=== PATIENT | male | born 1965 | race Caucasian/White ===

== ENCOUNTER 2018-10-16 19:57 | Observation (INO) ==
[2018-10-16] MEDS ORDERED: SODIUM CHLORIDE 0.9% 1000ML 1,000 ML IV SCH (20:30)
[2018-10-16] MEDS ORDERED: IOVERSOL 100ml IV PRN (20:55)
[2018-10-16 20:57] LABS: iSTAT Ionized Calcium 1.1 mmol/l (1.12-1.32); iSTAT Potassium 3.9 mEq/L (3.3-5.0)
--- NOTE | 2018-10-16 21:09 | CT Scan Report ---
CT abd pelvis IV con only CLINICAL HISTORY: 53 years-old Male presenting with RLQ Pain. TECHNIQUE: Multidetector CT of the abdomen and pelvis was performed after the administration of intra venous contrast. IV contrast: None. One or more dose lowering techniques were used consistent with e principles of ALARA (as low as reasonably achievable), including automatic exposure control, mA or kV adjustment to individual patient size, and/or use of iterative reconstruction. COMPARISON: None. CT DOSE (mGy.cm): The estimated cumulative dose is 802.68 mGy.cm. 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 Lung bases: Normal heart size. Calcified mediastinal lymph nodes. No pericardial or pleural effusion. Calcified granuloma noted. Minimal dependent opacities likely atelectasis. Liver: Normal morphology. Density suggestive of hepatic steatosis. No focal lesion. Patent hepatic va sculature. Biliary: No intrahepatic or extrahepatic biliary ductal dilatation. Normal gallbladder. Pancreas: Normal. Spleen: Normal. Adrenal glands: Normal. Kidneys and ureters: Normal. No hydronephrosis. Bladder: Circumferential bladder wall thickening. Pelvic organs: Prostate and seminal vesicles normal. Bowel: The appendix is dilated with an appendicolith at the appendiceal base. Trace periappendiceal f at infiltration and adjacent peritoneal thickening. The appendix measures up to 10 mm in diameter. Peritoneal cavity: No free fluid or intraperitoneal gas. Lymph nodes: No enlarged lymph nodes in the abdomen or pelvis. Vasculature: Aorta and IVC patent and normal in caliber. Abdominal wall: Normal. Musculoskeletal: Degenerative changes of the spine. IMPRESSION: 1. Acute uncomplicated appendicitis. No perforation or abscess. Surgical consultation is warranted. 2. Apparent circumferential bladder wall thickening could indicate cystitis, which may be secondary, or chronic bladder outlet obstruction in the setting of developing benign prostatic hyperplasia. The report will be called/faxed according to standard departmental protocol. Electronically signed by: Manny Banks M.D. 10/16/2018 9:08 PM
[2018-10-16 21:15] LABS: Albumin Level 4.3 gm/dl (3.4-5.0); BUN Creatinine Ratio 12.1 (10-20); Calcium 8.9 mg/dl (8.5-10.1); Creatinine Clr Calc Pharmacy 93.4 ml/min; Est GFR (African American) 90.3; Est GFR (Non-African American) 77.9; Potassium 3.8 mmol/L (3.5-5.1)
[2018-10-16] MEDS ORDERED: MoRPHine SULFATE 4 MG/ML 1 ML CARP\\VIAL IV STA (21:17)
[2018-10-16] MEDS ORDERED: ONDANSETRON INJ 2 MG/ML 2 ML VIAL IV STA (21:17)
[2018-10-16 21:18] LABS: Albumin Globulin Ratio 1.2 (0.9-2); Basophils # (auto) 0.04 K/uL (0-0.2); Basophils % (auto) 0.2 %; Bilirubin,Total 1.6 mg/dl (0.2-1); Eosinophils # (auto) 0.17 K/uL (0-0.5); Globulin 3.7 gm/dl (2.5-4.0); Hematocrit (blood only) 49.3 % (42-52); Hemoglobin 17.6 g/dL (14.0-18.0); Immature Granulocytes # (auto) 0.05 K/uL (0.00-0.02); Immature Granulocytes % (auto) 0.3 %; Lymphocytes # (auto) 1.85 K/uL (1.2-3.4); Lymphocytes % (auto) 10.5 %; Mean Corpuscular Hgb Conc 35.7 g/dL (32-36); Mean Corpuscular Volume 88.5 fL (80-100); Mean Platelet Volume 10.4 fL (7.4-10.4); Monocytes # (auto) 1.11 K/uL (0.11-0.59); Monocytes % (auto) 6.3 %; Neutrophils % (auto) 81.7 %; Platelet Count 202 K/uL (130-400); RDW Standard Deviation 38.2 fL (36.4-46.3); Red Blood Count 5.57 M/uL (4.7-6.1); White Blood Count 17.62 K/uL (4.8-10.8)
[2018-10-16] MEDS ORDERED: LIDOCAINE HCL 1% 20 ML VIAL ONE (21:27)
[2018-10-16] MEDS ORDERED: BACITRACIN OINT 15 GM TUBE ONE (21:27)
[2018-10-16] MEDS ORDERED: BUPIVACAINE 0.5 % 5 MG/1 ML MPF 30ML VIAL ONE (21:27)
--- NOTE | 2018-10-16 21:28 | Surgery Consultation ---
Date of Consultation October 16, 2018 Assessment & Plan (1) Acute appendicitis: pt is a 53 year -old male who presents to Er with RLQ pain, IMP; acute appendicitis Plan, I recommend to do laparoscopic appendectomy, possible open, D/W benefits, risks and alternatives of the surgery, the risks - infection, bleeding, abscess, injury bowel, pt understood, he agrees with [facility], I answered all questions, History of Present Illness History of Present Illness pt is a 53 year-old male who presents to ER with one day history of RLQ pain with nausea and no vomiting, the pain is located at RLQ, pt denies fever, no diarrhea, no back pain, no dysuria. pt had CT scan at ER dx acute appendicitis. Allergies Allergy/AdvReac Type Severity Reaction Status Date / Time [id number] Allergy Mild NONE Uncoded 07/20/09 17:24 Home Medications Home Medications Medication Instructions Recorded Confirmed Type No Known Home Medications 10/16/18 10/16/18 History Patient History Medical History Acute appendicitis Social History Preferred Language: Turkish Feels Safe at Home: Yes Smoking Status: Never smoker Review of Systems Constitutional: as per Subjective / HPI Ear, Nose, Mouth, Throat: as per Subjective / HPI Respiratory: as per Subjective / HPI Cardiovascular: as per Subjective / HPI Gastrointestinal: as per Subjective / HPI Genitourinary (Male): as per Subjective / HPI Musculoskeletal: as per Subjective / HPI Integumentary: as per Subjective / HPI Neurologic: as per Subjective / HPI Psychiatric: as per Subjective / HPI Endocrine: as per Subjective / HPI Hematologic / Lymphatic: as per Subjective / HPI Physical Exam Vital Signs (Past 24 Hours): Last Vital Signs Temp 37.3 C 10/16/18 20:04 Pulse 91 H 10/16/18 20:04 Resp 16 10/16/18 20:04 BP 156/95 H 10/16/18 20:04 Pulse Ox 98 10/16/18 20:04 Constitutional: WD/WN, vitals as above well developed and well nourished Neck: trachea midline, no thyromegaly Respiratory: normal respiratory effort, lungs clear to auscultation normal respiratory effort Cardiovascular: RRR, no murmur, no edema Rate/Rhythm: regular rate Heart Sounds: normal S1 and normal S2 Gastrointestinal (Abdomen): Percussion/Palpation: + abdomen tender, + guarding and abdomen soft tenderness at RLQ, no rebound pain Musculoskeletal: no cyanosis or clubbing, extremities motor strength 5/5 Neurologic: patellar DTR's 2+ bilat, sensation intact awake Psychiatric: Orientation: alert and oriented x 3 Results & Data Laboratory Results Abnormal lab results 10/16/18 10/16/18 10/16/18 Range/Units 20:36 20:36 20:42 WBC 17.62 H (4.8-10.8) K/uL Immature Gran # (Auto) 0.05 H (0.00-0.02) K/uL Neut # (Auto) 14.40 H (1.4-6.5) K/uL Ponce # (Auto) 1.11 H (0.11-0.59) K/uL POC Chloride 100 L (101-112) mEq/L Glucose 104 H (70-99) mg/dl POC Glucose (other) 110 H (70-99) mg/dl POC Ioniz Calcium Kendra 1.10 L (1.12-1.32) mmol/l Total Bilirubin 1.6 H (0.2-1) mg/dl Diagnostic Findings CT abd pelvis IV con only CLINICAL HISTORY: 53 years-old Male presenting with RLQ Pain. TECHNIQUE: Multidetector CT of the abdomen and pelvis was performed after the administration of intravenous contrast. IV contrast: None. One or more dose lowering techniques were used consistent with the principles of ALARA (as low as reasonably achievable), including automatic exposure control, mA or kV adjustment to individual patient size, and/or use of iterative reconstruction. COMPARISON: None. CT DOSE (mGy.cm): The estimated cumulative dose is 802.68 mGy.cm. 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 Lung bases: Normal heart size. Calcified mediastinal lymph nodes. No pericardial or pleural effusion. Calcified granuloma noted. Minimal dependent opacities likely atelectasis. Liver: Normal morphology. Density suggestive of hepatic steatosis. No focal lesion. Patent hepatic vasculature. Biliary: No intrahepatic or extrahepatic biliary ductal dilatation. Normal gallbladder. Pancreas: Normal. Spleen: Normal. Adrenal glands: Normal. Kidneys and ureters: Normal. No hydronephrosis. Bladder: Circumferential bladder wall thickening. Pelvic organs: Prostate and seminal vesicles normal. Bowel: The appendix is dilated with an appendicolith at the appendiceal base. Trace periappendiceal fat infiltration and adjacent peritoneal thickening. The appendix measures up to 10 mm in diameter. Peritoneal cavity: No free fluid or intraperitoneal gas. Lymph nodes: No enlarged lymph nodes in the abdomen or pelvis. Vasculature: Aorta and IVC patent and normal in caliber. Abdominal wall: Normal. Musculoskeletal: Degenerative changes of the spine. IMPRESSION: 1. Acute uncomplicated appendicitis. No perforation or abscess. Surgical consultation is warranted. 2. Apparent circumferential bladder wall thickening could indicate cystitis, which may be secondary, or chronic bladder outlet obstruction in the setting of developing benign prostatic hyperplasia. The report will be called/faxed according to standard departmental protocol.
--- NOTE | 2018-10-16 21:32 | History & Physical Bridge Note ---
Date of Service October 16, 2018 History & Physical Bridge Note I have examined the patient, reviewed the History & Physical and in the interval since the performance of the History & Physical I have noted the following changes of clinical significance: no changes noted
[2018-10-16] MEDS ORDERED: cefOXitin 2,000 MG in DEXTROSE 5% 50 ML IV ONE (21:45)
[2018-10-16 21:47] LABS: Appearance Urine Clear (Clear); Bilirubin Urine Negative (Negative); Blood Urine Negative (Negative); Color Urine Yellow; Glucose Urine UA Negative (Negative); Ketones Urine Negative (Negative); Leukocyte Esterase Urine Negative (Negative); Nitrite Urine Negative (Negative); Protein Urine Negative (Negative); Specific Gravity Urine > 1.045 (1.000-1.030); Urobilinogen Urine Negative (Negative); pH Urine 6.5 (4.5-7.5)
--- NOTE | 2018-10-16 22:00 | Anesthesiology Consultation ---
Date of Service October 16, 2018 Assessment & Plan (1) Encounter for pre-operative examination: Chart Review Chart Review: Acceptable Risk for Surgery and Patient NOT seen in Pre Admission Testing Consults Requested none ASA [id number] Proposed Anesthesia Anesthesia Type: General Risk / Benefits Reviewed With: PT / POA / Parent / Guardian, Accepts Plan and I nformed Consent Obtained NPO Date Last Intake of Fluids: 10/16/18 Time Last Intake of Fluids: 20:30 Date Last Intake of Solids: 10/16/18 Time Last Intake of Solids: 08:00 History Surgery Operation Date: 10/16/18 21:45 Proposed Procedures p Laparoscopic Appendectomy - Daiz Cartwright MD Height/Weight Height: 5 ft 8 in Weight: 106 kg Allergies Allergy/AdvReac Type Severity Reaction Status Date / Time No Known Allergies Allergy Unverified 10/16/18 21:59 Medications Home Medications Medication Instructions Recorded Confirmed Last Taken No Known Home Medications 10/16/18 10/16/18 Unknown Active Medications Generic Name Dose Route Start Last Admin Trade Name Freq PRN Reason Stop Dose Admin Ioversol 90 ml 10/16/18 20:55 10/16/18 20:55 Optiray 320 100ml IV 10/20/18 20:54 90 ml ONCE PRN Administration Interaction Checking Past Medical History Medical History Acute appendicitis Obesity (BMI 30-39.9) Prehypertension Past Surgical History Surgical History H/O tooth extraction History of hand surgery Ringer reimplantation at 10 years old Past Anesthesia History No Hx of Anesthesia Complications History of PONV No Motion Sickness Screening History of Motion Sickness: No Social History Smoking Status: Never smoker tobacco type: cigars (Once per week) Do You Dip or Chew Tobacco: No Hx Alcohol Use: No Alcohol type: beer alcohol intake frequency: a few times a week Hx Substance Use: No Exercise / Class Metabolic Activity II 4-5 Yardwork/Stairs/Walk up hill Negative for chest pain or shortness of breath. Review of Systems Patient denies active symptoms of GERD. Physical Exam Vital Signs Last Vital Signs Temp 37.3 C 10/16/18 20:04 Pulse 85 10/16/18 21:41 Resp 20 10/16/18 21:41 BP 180/93 H 10/16/18 21:41 Pulse Ox 96 10/16/18 21:41 Constitutional + obese ENMT Mouth: no TMJ abnormality and oral opening not small Thyromental Distance: > or= 3.5 Finger Breadths Mallampati Class: III Neck normal visual inspection and + facial hair; neck extension not limited Respiratory normal respiratory effort Auscultation: lungs clear to auscultation bilaterally Cardiovascular Rate/Rhythm: regular rate and regular rhythm Heart Sounds: no murmur Psychiatric A+Ox3, euthymic affect Orientation: alert and oriented x 3 Testing Laboratory Results 10/16/18 20:36 10/16/18 20:36 Urine Color Yellow 10/16/18 21:40 Urine Appearance Clear (Clear) 10/16/18 21:40 Urine pH 6.5 (4.5-7.5) 10/16/18 21:40 Ur Specific [place] > 1.045 (1.000-1.030) H 10/16/18 21:40 Urine Protein Negative (Negative) 10/16/18 21:40 Urine Glucose (UA) Negative (Negative) 10/16/18 21:40 Urine Ketones Negative (Negative) 10/16/18 21:40 Urine Nitrite Negative (Negative) 10/16/18 21:40 Ur Leukocyte Esterase Negative (Negative) 10/16/18 21:40 10/16/18 20:42 POC Glucose (other) 110 H
[2018-10-16] MEDS ORDERED: LIDOCAINE HCL 2% 2 ML VIAL/AMP(20MG/ML) INFIL ONE (22:13)
[2018-10-16] MEDS ORDERED: PROPOFOL IV EMULSION 10 MG/ML 20 ML VIAL IV ONE (22:13)
[2018-10-16] MEDS ORDERED: DEXAMETHASONE SOD INJ 4 MG/ML VIAL ONE (22:13)
[2018-10-16] MEDS ORDERED: SUCCINYLCHOLINE CHLORIDE 20 MG/ML 10 ML VIAL ONE (22:13)
[2018-10-16] MEDS ORDERED: ONDANSETRON INJ 2 MG/ML 2 ML VIAL ONE (22:13)
[2018-10-16] MEDS ORDERED: fentaNYL citrate 100 MCG/2 ML VIAL ONE ×2 (22:14→23:00)
[2018-10-16] MEDS ORDERED: MIDAZOLAM HCL 1 MG/ML 2ML VIAL ONE (22:14)
[2018-10-16] MEDS ORDERED: cefOXitin 1,000 MG/50 ML BAG IV STA (23:18)
[2018-10-16] MEDS ORDERED: ROCURONIUM BROMIDE 10 MG/ML 5 ML VIAL ONE (23:47)
[2018-10-16] MEDS ORDERED: KETOROLAC 30 MG/ML VIAL ONE (23:54)
--- NOTE | 2018-10-17 00:02 | Post Operative Brief Note ---
Immediate Post Op Note v1 Date of Surgery October 17, 2018 Pre & Post Diagnosis Operation Date: 10/16/18 21:45 Pre-Op Diagnosis: Acute Appendicitis Post-Op Diagnosis: Acute Appendicitis Procedure Operation Date: 10/16/18 21:45 Actual Procedures p Laparoscopic Appendectomy - Diaz Cartwright MD Surgeon Diaz Cartwright MD Director Of Flight Operations network technical analyst Estimated Blood Loss 10 Findings Consistent with Post-Op Diagnosis acute appendicitis, with gangrene Fluids 1100ml Specimens appendix Drains Salmeron Catheter (16fr salmeron catheter inserted without difficulty by Bushra Aquino RN. Salmeron is patent and draining clear yellow urine. Anesthesia to monitor urine output intraoperatively. Salmeron catheter removed at end of case with balloon intact. Salmeron drained approximately 200ml clear yellow urine as per anesthesia.) Anesthesia Type General Complications none Disposition Accompanied Patient To Recovery: Yes Disposition: Recovery Room Overlapping Procedure I was immediately available: during the entire case.
[2018-10-17] MEDS ORDERED: ONDANSETRON INJ 2 MG/ML 2 ML VIAL IV PRN (00:13)
[2018-10-17] MEDS ORDERED: OXYCODONE/ACETAMINOPHEN 5mg/325mg TAB PO PRN (00:16)
[2018-10-17] MEDS ORDERED: HYDROmorphone INJ 1 MG/ML SYRINGE IV PRN (00:16)
[2018-10-17] MEDS ORDERED: PROMETHAZINE HCL 12.5 MG in SODIUM CHLORIDE 0.9% 50 ML IV PRN (00:24)
[2018-10-17] MEDS ORDERED: ePHEDrine sulfate 50 MG/ML AMP IV PRN (00:24)
[2018-10-17] MEDS ORDERED: ATROPINE SULFATE 0.1 MG/ML 10ML SYR IV PRN (00:24)
[2018-10-17] MEDS ORDERED: fentaNYL citrate 100 MCG/2 ML VIAL IV PRN (00:24)
--- NOTE | 2018-10-17 00:40 | Anesthesiology Progress Note ---
Date of Service October 17, 2018 Anesthesia Post Procedure Vital Signs Vital Signs: Temp Pulse Pulse Resp BP BP Pulse Ox 10/17/18 00:33 80 151/82 H 97 10/17/18 00:30 81 138/81 97 10/17/18 00:25 80 139/78 98 10/17/18 00:16 37 C 87 20 144/80 H 92 10/16/18 21:41 85 20 180/93 H 96 10/16/18 20:04 37.3 C 91 H 16 156/95 H 98 Notes Mental Status: alert / awake / arousable and participated in evaluation Patient Amnestic to Procedure: Yes Nausea / Vomiting: adequately controlled Pain: adequately controlled Airway Patency, RR, SpO2: stable & adequate BP & HR: stable & adequate Hydration State: stable & adequate Anesthetic Complications: no major complications apparent and Pt Satisfied with anesthetic care
--- NOTE | 2018-10-17 01:35 | Operative Report ---
DATE OF OPERATION: 10/16/2018 PREOPERATIVE DIAGNOSIS: Acute appendicitis. POSTOPERATIVE DIAGNOSIS: Same. PROCEDURE: Laparoscopic appendectomy. SURGEON: Diaz Cartwright MD ANESTHESIA: General. ESTIMATED BLOOD LOSS: About 10 mL. FINDINGS: Acute appendicitis with gangrene. COMPLICATIONS: None. INDICATIONS FOR THE PROCEDURE: This is a 53-year-old gentleman who presented to the ED with 1-day history of right lower quadrant pain. The patient had a CT scan diagnosis of acute appendicitis. I recommended to do a laparoscopic appendectomy, possible open. I did talk to the patient about the benefits, the risks, alternate procedures. I indicated the risks may include, but not limited, such as bleeding, infection, abscess, injury to the bowel. The patient understands. He signed informed consent and I answered all questions. DETAILS OF PROCEDURE: We brought in the patient to the OR and put the patient in the supine position. The patient received SCD on bilateral legs to prevent DVT. Also, the patient received 2 grams cefoxitin IV for prophylactic antibiotic. The patient received general anesthesia without difficulty with a Mckeon catheter insertion. The abdomen was prepped and draped in routine sterile fashion. After timeout, I injected local anesthesia by using 1% lidocaine mixed with 0.5% Marcaine around the umbilical area. Then I made a small incision just above umbilicus, opened fascia and opened peritoneum under direct vision, put a Ben trocar in, connected to CO2 to create pneumoperitoneum, flow rate at 6 liter per minute, pressure not more than 14 mmHg. Once we got a nice pneumoperitoneum, we put the camera in, looked around the abdomen, shows normal finding on the small bowel and large bowel; however, the patient has significant inflammation on the appendix. The appendix is enlarged, inflammation, with gangrene and there is some yellow fluid around the appendix. No significant perforation at this moment. Once confirmed diagnosis of acute appendicitis, I put another two 5-mm trocars on the left lower quadrant where I mobilized the appendix, used Harmonic to take down appendiceal, rechecked, no active bleeding. Used 45-mm Endo-CUBA stapler transection on the base of the appendix, rechecked the staple line, intact and no leak, no active bleeding. Then I removed the appendix through the catcher bag. Then we inserted Ben trocar and connected to CO2 to create pneumoperitoneum and again looked around the abdomen. The staple line intact. No active bleeding, no leak. We suctioned all the free fluid in the abdomen, minimal free fluid in the abdomen. Hemostasis was obtained. Then I removed all trocar under direct vision. No active bleeding from the trocar sites. Pneumoperitoneum was released. Then I closed the umbilical incision, fascial layer by using #1 Vicryl [id number] x2, closed subcutaneous layer by using 2-0 Vicryl interrupted, and closed skin by using 4-0 Vicryl continuous running. Closed another two 5-mm trocar sites skin only by using 4-0 Vicryl. Then we put the dressing on. The patient tolerated the procedure well. All the instrument, needle and sponge count were correct x2 at the end of case. The patient transferred to recovery room in stable condition. The specimen sent to pathology. I attest to the content of the Intraoperative Record and any orders documented therein. Any exception s are noted below.
[2018-10-17] MEDS ORDERED: LACTATED RINGER'S 1,000 ML IV SCH (01:45)
--- NOTE | 2018-10-17 01:58 | Emergency Department Note ---
Entered by Fercho Garza acting as a scribe for Markie Bosch DO History of Present Illness General Chief complaint: Abdominal Pain Stated complaint: abdominal pain Source: patient History of Present Illness Provider complaint: Abd pain Onset (ago): hour(s) Location: abdomen Maximum Pain Intensity: 6 Current Pain Intensity: 6 Quality: + other (worsening) Relieved By: + none Associated symptoms: + denies other symptoms (diarrhea, back pain, testicular pain, and vomiting) and + other (bloating, nausea) The patient is a 53 year old male who presents to the Emergency Room with c omplaints of worsening abdominal pain that began several hours ago. The patient describes the pain as worsening and rates it as a 6/10. He adds that he feels bloated and complains of nausea. The patient states that he has never had this type of abdominal pain before. The patient denies diarrhea, back pain, testicular pain, and vomiting. Home Medications Home Medications Medication Instructions Recorded Confirmed Type No Known Home Medications 10/16/18 10/16/18 History ciprofloxacin HCl [Cipro] 500 mg PO BID 5 Days #10 tab 10/17/18 Rx metronidazole [Flagyl] 500 mg PO TID 5 Days #15 tab 10/17/18 Rx oxycodone-acetaminophen [Percocet] 1 tab PO Q4H PRN #18 tab 10/17/18 Rx Allergies Allergy/AdvReac Type Severity Reaction Status Date / Time No Known Allergies Allergy Unverified 10/16/18 21:59 Past Med/Surg History Medical History Acute appendicitis (Acute) Obesity (BMI 30-39.9) Prehypertension Surgical History H/O tooth extraction History of hand surgery Ringer reimplantation at 10 years old Social History Preferred Language: Urdu Communication Ability: Effective [employer] Bonder Required: No Beliefs That Will Affect Care: None Current Living Situation: Family Other Information That Helps Us Care for You: No Feels Safe at Home: Yes Safety Concerns: Feels Safe At This Time Smoking Status: Current some day smoker Hx Alcohol Use: Yes Hx Substance Use: No Review of Systems See HPI for pertinent positives & negatives. and A total of 10 systems reviewed and were otherwise negative Physical Exam Vital Signs Vital Signs - 24 hr 10/16/18 20:04 10/16/18 20:24 10/16/18 21:41 Temperature 37.3 C Temperature Source Oral Sepsis Recent Fever Within 48 Hours No Sepsis New/Unexplained Change in Mental Status No Sepsis Action Taken by Nursing No Action Required Pulse Rate 91 H Pulse Rate [Left Finger] Pulse Rate [Right Brachial] Pulse Rate [Right Finger] 85 Pulse Rhythm [Right Finger] Pulse Strength [Right Finger] Respiratory Rate 16 20 Respiratory Effort / Characteristics Non-Labored Spontaneous Non-Labored Spontaneous Respiratory Depth Normal Normal Respiratory Pattern Regular Blood Pressure 156/95 H Blood Pressure [Right Arm] 180/93 H Blood Pressure Mean 115 Blood Pressure Mean [Right Arm] 122 Blood Pressure Position [Right Arm] Lying Pulse Oximetry 98 96 Oxygen Delivery Method Room Air Room Air Room Air Oxygen Flow Rate 10/17/18 00:16 10/17/18 00:25 10/17/18 00:30 Temperature 37 C Temperature Source Temporal Artery Scan Sepsis Recent Fever Within 48 Hours Sepsis New/Unexplained Change in Mental Status Sepsis Action Taken by Nursing Pulse Rate Pulse Rate [Left Finger] Pulse Rate [Right Brachial] Pulse Rate [Right Finger] 87 80 81 Pulse Rhythm [Right Finger] Pulse Strength [Right Finger] Respiratory Rate 20 Respiratory Effort / Characteristics Respiratory Depth Respiratory Pattern Blood Pressure Blood Pressure [Right Arm] 144/80 H 139/78 138/81 Blood Pressure Mean Blood Pressure Mean [Right Arm] 101 98 100 Blood Pressure Position [Right Arm] Pulse Oximetry 92 98 97 Oxygen Delivery Method Oxymask Oxymask Oxymask Oxygen Flow Rate 15 5 10/17/18 00:33 10/17/18 00:40 10/17/18 00:46 Temperature Temperature Source Sepsis Recent Fever Within 48 Hours Sepsis New/Unexplained Change in Mental Status Sepsis Action Taken by Nursing Pulse Rate Pulse Rate [Left Finger] Pulse Rate [Right Brachial] Pulse Rate [Right Finger] 80 83 82 Pulse Rhythm [Right Finger] Pulse Strength [Right Finger] Respiratory Rate 21 21 Respiratory Effort / Characteristics Respiratory Depth Respiratory Pattern Blood Pressure Blood Pressure [Right Arm] 151/82 H 134/79 122/72 Blood Pressure Mean Blood Pressure Mean [Right Arm] 105 97 88 Blood Pressure Position [Right Arm] Pulse Oximetry 97 95 92 Oxygen Delivery Method Oxymask Room Air Room Air Oxygen Flow Rate 15 10/17/18 00:50 10/17/18 00:56 10/17/18 01:01 Temperature Temperature Source Sepsis Recent Fever Within 48 Hours Sepsis New/Unexplained Change in Mental Status Sepsis Action Taken by Nursing Pulse Rate Pulse Rate [Left Finger] Pulse Rate [Right Brachial] Pulse Rate [Right Finger] 81 80 81 Pulse Rhythm [Right Finger] Pulse Strength [Right Finger] Respiratory Rate Respiratory Effort / Characteristics Respiratory Depth Respiratory Pattern Blood Pressure Blood Pressure [Right Arm] 129/75 133/76 144/81 H Blood Pressure Mean Blood Pressure Mean [Right Arm] 93 95 102 Blood Pressure Position [Right Arm] Pulse Oximetry 94 94 94 Oxygen Delivery Method Nasal Cannula Nasal Cannula Nasal Cannula Oxygen Flow Rate 2 2 2 10/17/18 01:10 10/17/18 01:34 10/17/18 01:52 Temperature 37 C 37.1 C 37.1 C Temperature Source Temporal Artery Scan Oral Oral Sepsis Recent Fever Within 48 Hours Sepsis New/Unexplained Change in Mental Status Sepsis Action Taken by Nursing Pulse Rate Pulse Rate [Left Finger] 80 Pulse Rate [Right Brachial] Pulse Rate [Right Finger] 80 78 Pulse Rhythm [Right Finger] Pulse Strength [Right Finger] Respiratory Rate 16 16 Respiratory Effort / Characteristics Non-Labored Spontaneous Non-Labored Spontaneous Respiratory Depth Normal Normal Respiratory Pattern Regular Blood Pressure Blood Pressure [Right Arm] 143/81 H 118/73 122/76 Blood Pressure Mean Blood Pressure Mean [Right Arm] 101 88 91 Blood Pressure Position [Right Arm] Lying Lying Pulse Oximetry 95 93 91 Oxygen Delivery Method Nasal Cannula Room Air Room Air Oxygen Flow Rate 2 10/17/18 02:30 10/17/18 03:37 10/17/18 04:30 Temperature 36.8 C 36.9 C 36.9 C Temperature Source Oral Oral Oral Sepsis Recent Fever Within 48 Hours Sepsis New/Unexplained Change in Mental Status Sepsis Action Taken by Nursing Pulse Rate Pulse Rate [Left Finger] Pulse Rate [Right Brachial] 82 75 Pulse Rate [Right Finger] 98 H Pulse Rhythm [Right Finger] Regular Pulse Strength [Right Finger] Normal Respiratory Rate 16 16 16 Respiratory Effort / Characteristics Respiratory Depth Normal Respiratory Pattern Blood Pressure Blood Pressure [Right Arm] 120/72 108/64 111/69 Blood Pressure Mean Blood Pressure Mean [Right Arm] 88 78 83 Blood Pressure Position [Right Arm] Lying Lying Lying Pulse Oximetry 92 96 92 Oxygen Delivery Method Room Air Room Air Room Air Oxygen Flow Rate 10/17/18 07:07 10/17/18 12:39 Temperature 36.9 C 36.9 C Temperature Source Oral Oral Sepsis Recent Fever Within 48 Hours Sepsis New/Unexplained Change in Mental Status Sepsis Action Taken by Nursing Pulse Rate Pulse Rate [Left Finger] Pulse Rate [Right Brachial] 70 Pulse Rate [Right Finger] 74 Pulse Rhythm [Right Finger] Pulse Strength [Right Finger] Respiratory Rate 18 18 Respiratory Effort / Characteristics Respiratory Depth Respiratory Pattern Blood Pressure Blood Pressure [Right Arm] 115/72 123/77 Blood Pressure Mean Blood Pressure Mean [Right Arm] 86 92 Blood Pressure Position [Right Arm] Semi-fowlers Sitting Pulse Oximetry 92 95 Oxygen Delivery Method Room Air Oxygen Flow Rate GENERAL: Patient is awake, alert, and in no acute distress.Patient is resting comfortably and showing no signs of anxiety EYES: The conjunctivae are clear. The pupils are round and reactive. EARS, NOSE, MOUTH AND THROAT: The nose is without any evidence of any deformity. Mucous membranes are moist.Tongue is midline NECK: The neck is nontender and supple. RESPIRATORY: Normal respiratory effort is noted. There is no evidence of w heezing rhonchi or rales to auscultation. CARDIOVASCULAR: Regular rate and rhythm noted. There no murmurs rubs or gallops normal S1 normal S2 GASTROINTESTINAL: The abdomen is soft. Bowel sounds are present in all quadrants. Abdomen was moderately distended and tender, guarding in both lower quadrants. BACK: No midline tenderness or or step-off noted range of motion in flexion extension as well as rotation no signs of muscle spasm noted. MUSCULOSKELETAL/EXTREMITIES: There is no evidence of gross deformity. Full range of motion is noted in the hips and shoulders. SKIN: There is no obvious evidence of any rash. There are no petechiae, pallor or cyanosis noted. NEUROLOGIC: Patient is awake alert and oriented x3. Strength is symmetric. Patellar reflexes are 2+ bilaterally. Course 2019: The patient was evaluated in room B12, and a complete history and physical examination were performed. 2113: I reviewed the patient's case with Dr. Rogers-Surgery. He will evaluate the patient for further management. Administered Medications Enoxaparin Sodium (Lovenox) 40 mg SQ QAM SHANTELL Stop: 11/16/18 08:59 Last Admin: 10/17/18 09:27 Dose: 40 mg Documented by: [id number] Lactated Ringer's (Lr) 1,000 mls @ 80 mls/hr IV .[id number] [facility] Stop: 11/16/18 01:44 Last Infusion: 10/17/18 05:41 Dose: 80 mls/hr Documented by: [id number] Infusion: 10/17/18 02:02 Dose: 0 mls/hr Documented by: [id number] Admin: 10/17/18 02:01 Dose: 80 mls/hr Documented by: [id number] Ciprofloxacin (Cipro) 400 mg in 200 mls @ 100 mls/hr IV Q12H [facility] Stop: 10/18/18 01:59 Last Infusion: 10/17/18 04:02 Dose: 0 mls/hr Documented by: [id number] Admin: 10/17/18 02:02 Dose: 100 mls/hr Documented by: [id number] Metronidazole (Flagyl) 500 mg in 100 mls @ 100 mls/hr IV Q8H [facility] Stop: 10/18/18 03:59 Last Infusion: 10/17/18 05:41 Dose: 0 mls/hr Documented by: [id number] Admin: 10/17/18 04:41 Dose: 100 mls/hr Documented by: [id number] Discontinued Medications Bacitracin (Bacitracin) Confirm Administered Dose 45 appln .ROUTE .STK-MED ONE Stop: 10/16/18 21:28 Last Admin: 10/17/18 00:11 Dose: 10 appln Documented by: [id number] Bupivacaine HCl (Marcaine 0.5% Mpf) Confirm Administered Dose 30 ml .ROUTE .STK- MED ONE Stop: 10/16/18 21:28 Last Admin: 10/17/18 00:11 Dose: 20 ml Documented by: [id number] Sodium Chloride (Nss 1000ml) 1,000 mls @ 999 mls/hr IV .[id number] [facility] Stop: 10/16/18 21:30 Last Infusion: 10/16/18 21:37 Dose: 0 mls/hr Documented by: [id number] Admin: 10/16/18 20:36 Dose: 999 mls/hr Documented by: [id number] Cefoxitin Sodium 2,000 mg/ (Dextrose) 60 mls @ 100 mls/hr IV ONE ONE Stop: 10/16/18 22:20 Last Infusion: 10/17/18 01:50 Dose: 0 mls/hr Documented by: [id number] Admin: 10/16/18 22:31 Dose: 100 mls/hr Documented by: [id number] Cefoxitin Sodium (Mefoxin) 1,000 mg in 50 mls @ 100 mls/hr IV ONCE STA Stop: 10/16/18 23:47 Last Infusion: 10/17/18 01:50 Dose: 0 mls/hr Documented by: [id number] Admin: 10/16/18 22:31 Dose: 100 mls/hr Documented by: [id number] Ioversol (Optiray 320 100ml) 90 ml IV ONCE PRN PRN Reason: Interaction Checking Stop: 10/20/18 20:54 Last Admin: 10/16/18 20:55 Dose: 90 ml Documented by: [id number] Lidocaine HCl (Xylocaine 1% (Local)) Confirm Administered Dose 20 ml .ROUTE .STeMar-MED ONE Stop: 10/16/18 21:28 Last Admin: 10/17/18 01:49 Dose: Not Given Documented by: [id number] Morphine Sulfate (Morphine Sulfate) 4 mg IV NOW STA Stop: 10/16/18 21:18 Last Admin: 10/16/18 21:38 Dose: 4 mg Documented by: [id number] Ondansetron HCl (Zofran) 4 mg IV NOW STA Stop: 10/16/18 21:18 Last Admin: 10/16/18 21:39 Dose: 4 mg Documented by: [id number] Medical Decision Making Differential Diagnosis Differential diagnosis: Etiologies such as appendicitis, diverticulitis, PUD, biliary pathology, UTI, pancreatitis, obstruction, mesenteric ischemia, aortic pathology, infections, inflammatory bowel disease, renal colic, as well as others were entertained. Medical Records Attestation: I reviewed the patient's medical records. Home Medications Current Medication List: was personally reviewed by me Laboratory Data Attestation: I reviewed the patient's lab results. Result diagrams: 10/17/18 04:27 10/16/18 20:36 Lab Results 10/16/18 10/16/18 10/16/18 Range/Units 20:36 20:36 20:42 WBC 17.62 H (4.8-10.8) K/uL RBC 5.57 (4.7-6.1) M/uL Hgb 17.6 (14.0-18.0) g/dL POC Hgb 16.0 (14.0-18.0) g/dl Hct 49.3 (42-52) % POC Hct 47 (42-52) % MCV 88.5 (80-100) fL MCH 31.6 (25-34) pg MCHC 35.7 (32-36) g/dL RDW Std Deviation 38.2 (36.4-46.3) fL RDW Coeff of Chiquita 12.0 (11.5-14.5) % Plt Count 202 (130-400) K/uL MPV 10.4 (7.4-10.4) fL Immature Gran % (Auto) 0.3 % Neut % (Auto) 81.7 % Lymph % (Auto) 10.5 % [place] % (Auto) 6.3 % Eos % (Auto) 1.0 % Baso % (Auto) 0.2 % Immature Gran # (Auto) 0.05 H (0.00-0.02) K/uL Neut # (Auto) 14.40 H (1.4-6.5) K/uL Lymph # (Auto) 1.85 (1.2-3.4) K/uL [place] # (Auto) 1.11 H (0.11-0.59) K/uL Eos # (Auto) 0.17 (0-0.5) K/uL Baso # (Auto) 0.04 (0-0.2) K/uL POC Sodium 138 (135-144) mEq/L Sodium 138 (136-145) mmol/L POC Potassium 3.9 (3.3-5.0) mEq/L Potassium 3.8 (3.5-5.1) mmol/L POC Chloride 100 L (101-112) mEq/L Chloride 104 (98-107) mmol/L Carbon Dioxide 26 (21-32) mmol/L POC Total CO2 25 (24-31) mEq/l Anion Gap 8.0 (3-11) POC Anion Gap 18.0 (16-25) mmol/L POC BUN 14 (7-18) mg/dl BUN 13 (7-18) mg/dl Creatinine 1.08 (0.6-1.4) mg/dl POC Creatinine 1.0 (0.6-1.3) mg/dl Est Cr Clr Drug Dosing 93.4 ml/min Est GFR ( Amer) 90.3 Est GFR (Non-Af Amer) 77.9 BUN/Creatinine Ratio 12.1 (10-20) Glucose 104 H (70-99) mg/dl POC Glucose (other) 110 H (70-99) mg/dl Calcium 8.9 (8.5-10.1) mg/dl POC Ioniz Calcium Kendra 1.10 L (1.12-1.32) mmol/l Total Bilirubin 1.6 H (0.2-1) mg/dl AST 34 (15-37) U/L ALT 58 (12-78) U/L Alkaline Phosphatase 105 (45-117) U/L Total Protein 8.0 (6.4-8.2) gm/dl Albumin 4.3 (3.4-5.0) gm/dl Globulin 3.7 (2.5-4.0) gm/dl Albumin/Globulin Ratio 1.2 (0.9-2) Lipase 92 (73-393) U/L Urine Color Urine Appearance (Clear) Urine pH (4.5-7.5) POC Urine pH (4.5-7.5) Ur Specific [place] (1.000-1.030) Urine Protein (Negative) POC Urine Protein (Negative) Urine Glucose (UA) (Negative) POC Ur Glucose (UA) (Normal) Urine Ketones (Negative) POC Urine Ketones (Negative) Urine Blood (Negative) POC Urine Blood (Negative) Urine Nitrite (Negative) POC Urine Nitrite (Negative) Urine Bilirubin (Negative) POC Urine Bilirubin (Negative) Urine Urobilinogen (Negative) POC Urine Urobilinogen (Normal) Ur Leukocyte Esterase (Negative) POC U Leukocyte Esteras (Negative) Hepatitis C Ab Screen (Neg) 10/16/18 10/16/18 10/17/18 Range/Units 21:40 21:40 04:27 WBC (4.8-10.8) K/uL RBC (4.7-6.1) M/uL Hgb (14.0-18.0) g/dL POC Hgb (14.0-18.0) g/dl Hct (42-52) % POC Hct (42-52) % MCV (80-100) fL MCH (25-34) pg MCHC (32-36) g/dL RDW Std Deviation (36.4-46.3) fL RDW Coeff of Chiquita (11.5-14.5) % Plt Count (130-400) K/uL MPV (7.4-10.4) fL Immature Gran % (Auto) % Neut % (Auto) % Lymph % (Auto) % [place] % (Auto) % Eos % (Auto) % Baso % (Auto) % Immature Gran # (Auto) (0.00-0.02) K/uL Neut # (Auto) (1.4-6.5) K/uL Lymph # (Auto) (1.2-3.4) K/uL [place] # (Auto) (0.11-0.59) K/uL Eos # (Auto) (0-0.5) K/uL Baso # (Auto) (0-0.2) K/uL POC Sodium (135-144) mEq/L Sodium (136-145) mmol/L POC Potassium (3.3-5.0) mEq/L Potassium (3.5-5.1) mmol/L POC Chloride (101-112) mEq/L Chloride (98-107) mmol/L Carbon Dioxide (21-32) mmol/L POC Total CO2 (24-31) mEq/l Anion Gap (3-11) POC Anion Gap (16-25) mmol/L POC BUN (7-18) mg/dl BUN (7-18) mg/dl Creatinine (0.6-1.4) mg/dl POC Creatinine (0.6-1.3) mg/dl Est Cr Clr Drug Dosing ml/min Est GFR ( Amer) Est GFR (Non-Af Amer) BUN/Creatinine Ratio (10-20) Glucose (70-99) mg/dl POC Glucose (other) (70-99) mg/dl Calcium (8.5-10.1) mg/dl POC Ioniz Calcium Kendra (1.12-1.32) mmol/l Total Bilirubin (0.2-1) mg/dl AST (15-37) U/L ALT (12-78) U/L Alkaline Phosphatase (45-117) U/L Total Protein (6.4-8.2) gm/dl Albumin (3.4-5.0) gm/dl Globulin (2.5-4.0) gm/dl Albumin/Globulin Ratio (0.9-2) Lipase (73-393) U/L Urine Color Yellow Urine Appearance Clear (Clear) Urine pH 6.5 (4.5-7.5) POC Urine pH 6 (4.5-7.5) Ur Specific [place] > 1.045 H (1.000-1.030) Urine Protein Negative (Negative) POC Urine Protein Negative (Negative) Urine Glucose (UA) Negative (Negative) POC Ur Glucose (UA) Normal (Normal) Urine Ketones Negative (Negative) POC Urine Ketones Negative (Negative) Urine Blood Negative (Negative) POC Urine Blood Negative (Negative) Urine Nitrite Negative (Negative) POC Urine Nitrite Negative (Negative) Urine Bilirubin Negative (Negative) POC Urine Bilirubin Negative (Negative) Urine Urobilinogen Negative (Negative) POC Urine Urobilinogen Normal (Normal) Ur Leukocyte Esterase Negative (Negative) POC U Leukocyte Esteras Negative (Negative) Hepatitis C Ab Screen Neg (Neg) 10/17/18 Range/Units 04:27 WBC 15.37 H (4.8-10.8) K/uL RBC 4.95 (4.7-6.1) M/uL Hgb 15.5 (14.0-18.0) g/dL POC Hgb (14.0-18.0) g/dl Hct 43.4 (42-52) % POC Hct (42-52) % MCV 87.7 (80-100) fL MCH 31.3 (25-34) pg MCHC 35.7 (32-36) g/dL RDW Std Deviation 38.6 (36.4-46.3) fL RDW Coeff of Chiquita 12.1 (11.5-14.5) % Plt Count 165 (130-400) K/uL MPV 10.2 (7.4-10.4) fL Immature Gran % (Auto) 0.2 % Neut % (Auto) 92.1 % Lymph % (Auto) 5.0 % [place] % (Auto) 2.5 % Eos % (Auto) 0.1 % Baso % (Auto) 0.1 % Immature Gran # (Auto) 0.03 H (0.00-0.02) K/uL Neut # (Auto) 14.16 H (1.4-6.5) K/uL Lymph # (Auto) 0.77 L (1.2-3.4) K/uL [place] # (Auto) 0.39 (0.11-0.59) K/uL Eos # (Auto) 0.01 (0-0.5) K/uL Baso # (Auto) 0.01 (0-0.2) K/uL POC Sodium (135-144) mEq/L Sodium (136-145) mmol/L POC Potassium (3.3-5.0) mEq/L Potassium (3.5-5.1) mmol/L POC Chloride (101-112) mEq/L Chloride (98-107) mmol/L Carbon Dioxide (21-32) mmol/L POC Total CO2 (24-31) mEq/l Anion Gap (3-11) POC Anion Gap (16-25) mmol/L POC BUN (7-18) mg/dl BUN (7-18) mg/dl Creatinine (0.6-1.4) mg/dl POC Creatinine (0.6-1.3) mg/dl Est Cr Clr Drug Dosing ml/min Est GFR ( Amer) Est GFR (Non-Af Amer) BUN/Creatinine Ratio (10-20) Glucose (70-99) mg/dl POC Glucose (other) (70-99) mg/dl Calcium (8.5-10.1) mg/dl POC Ioniz Calcium Kendra (1.12-1.32) mmol/l Total Bilirubin (0.2-1) mg/dl AST (15-37) U/L ALT (12-78) U/L Alkaline Phosphatase (45-117) U/L Total Protein (6.4-8.2) gm/dl Albumin (3.4-5.0) gm/dl Globulin (2.5-4.0) gm/dl Albumin/Globulin Ratio (0.9-2) Lipase (73-393) U/L Urine Color Urine Appearance (Clear) Urine pH (4.5-7.5) POC Urine pH (4.5-7.5) Ur Specific [place] (1.000-1.030) Urine Protein (Negative) POC Urine Protein (Negative) Urine Glucose (UA) (Negative) POC Ur Glucose (UA) (Normal) Urine Ketones (Negative) POC Urine Ketones (Negative) Urine Blood (Negative) POC Urine Blood (Negative) Urine Nitrite (Negative) POC Urine Nitrite (Negative) Urine Bilirubin (Negative) POC Urine Bilirubin (Negative) Urine Urobilinogen (Negative) POC Urine Urobilinogen (Normal) Ur Leukocyte Esterase (Negative) POC U Leukocyte Esteras (Negative) Hepatitis C Ab Screen (Neg) Imaging Data Radiologist's Impression: Radiology results as stated below per my review and the radiologist's interpretation: CT abd pelvis IV con only CLINICAL HISTORY: 53 years-old Male presenting with RLQ Pain. TECHNIQUE: Multidetector CT of the abdomen and pelvis was performed after the administration of intravenous contrast. IV contrast: None. One or more dose low ering techniques were used consistent with the principles of ALARA (as low as reasonably achievable), including automatic exposure control, mA or kV adjustment to individual patient size, and/or use of iterative reconstruction. COMPARISON: None. CT DOSE (mGy.cm): The estimated cumulative dose is 802.68 mGy.cm. FINDINGS: Side Seam Envelope Machine Operator topogram: Unremarkable. Lung bases: Normal heart size. Calcified mediastinal lymph nodes. No pericardial or pleural effusion. Calcified granuloma noted. Minimal dependent opacities likely atelectasis. Liver: Normal morphology. Density suggestive of hepatic steatosis. No focal lesion. Patent hepatic vasculature. Biliary: No intrahepatic or extrahepatic biliary ductal dilatation. Normal gallbladder. Pancreas: Normal. Spleen: Normal. Adrenal glands: Normal. Kidneys and ureters: Normal. No hydronephrosis. Bladder: Circumferential bladder wall thickening. Pelvic organs: Prostate and seminal vesicles normal. Bowel: The appendix is dilated with an appendicolith at the appendiceal base. Trace periappendiceal fat infiltration and adjacent peritoneal thickening. The appendix measures up to 10 mm in diameter. Peritoneal cavity: No free fluid or intraperitoneal gas. Lymph nodes: No enlarged lymph nodes in the abdomen or pelvis. Vasculature: Aorta and IVC patent and normal in caliber. Abdominal wall: Normal. Musculoskeletal: Degenerative changes of the spine. IMPRESSION: 1. Acute uncomplicated appendicitis. No perforation or abscess. Surgical con sultation is warranted. 2. Apparent circumferential bladder wall thickening could indicate cystitis, which may be secondary, or chronic bladder outlet obstruction in the setting of developing benign prostatic hyperplasia. The report will be called/faxed according to standard departmental protocol. Electronically signed by: Manny Banks M.D. 10/16/2018 9:08 PM Blood Pressure Blood Pressure Findings: Elevated blood pressure Blood Pressure Disposition: elevated BP felt to be situational MDM Narrative The patient is a 53-year-old male who presented to the emergency department for an evaluation of lower abdominal pain. The patient's pain began earlier today. The patient had a history of physical exam which was consistent with possible appendicitis. This was confirmed by laboratory studies as well as CAT scan. The patient was treated with IV pain medication in the emergency department. He was reevaluated multiple times. I discussed his case with the on-call general surgeon. They have agreed to evaluate the patient in the emergency department for further management and disposition. I discussed patient's laboratory and radiographic studies with him. Impression & Plan Acute appendicitis, Abdominal pain, RLQ Discharge Plan Visit Data *Final* Discharge Date/Time: 10/16/18 21:47 Chief Complaint: Abdominal Pain Stated Complaint: abdominal pain ED Provider: Markie Bosch Discharge Problem: Acute appendicitis, Abdominal pain, RLQ Patient Disposition: Still a Patient Discharge Instructions Interventions: ED Discharge Assessment Last Done: 10/16/18 21:42 Discharge Problem: Acute appendicitis Qualifiers: Acute appendicitis type: unspecified acute appendicitis type Qualified Code(s): K35.80 - Unspecified acute appendicitis The scribe's documentation has been prepared under my direction and personally reviewed by me in its entirety. I confirm that the note above accurately reflects all work, treatment, procedures, and medical decision making performed by me.
[2018-10-17] MEDS: CIPROFLOXACIN 400 MG/200 ML BAG IV SCH ×2 (02:02→15:03)
[2018-10-17 04:35] LABS: Basophils # (auto) 0.01 K/uL (0-0.2); Basophils % (auto) 0.1 %; Eosinophils # (auto) 0.01 K/uL (0-0.5); Eosinophils % (auto) 0.1 %; Hematocrit (blood only) 43.4 % (42-52); Hemoglobin 15.5 g/dL (14.0-18.0); Immature Granulocytes # (auto) 0.03 K/uL (0.00-0.02); Immature Granulocytes % (auto) 0.2 %; Lymphocytes # (auto) 0.77 K/uL (1.2-3.4); Mean Corpuscular Hgb Conc 35.7 g/dL (32-36); Mean Corpuscular Volume 87.7 fL (80-100); Mean Platelet Volume 10.2 fL (7.4-10.4); Monocytes # (auto) 0.39 K/uL (0.11-0.59); Monocytes % (auto) 2.5 %; Neutrophils # (auto) 14.16 K/uL (1.4-6.5); Neutrophils % (auto) 92.1 %; Platelet Count 165 K/uL (130-400); RDW Coefficient of Variation 12.1 % (11.5-14.5); RDW Standard Deviation 38.6 fL (36.4-46.3); Red Blood Count 4.95 M/uL (4.7-6.1); White Blood Count 15.37 K/uL (4.8-10.8)
[2018-10-17] MEDS: metroNIDAZOLE 500 MG/100 ML BAG IV SCH ×2 (04:41→12:55)
[2018-10-17] MEDS ORDERED: ENOXAPARIN INJ 40 MG/0.4 ML SYR SQ SCH (09:00)
[2018-10-17] MEDS ORDERED: ACETAMINOPHEN 325 MG TAB PO PRN (09:17)
--- NOTE | 2018-10-17 12:38 | Surgery Progress Note ---
Date of Service October 17, 2018 Assessment & Plan (1) Acute appendicitis: POD # 1 s/p laparoscopic appendectomy -vitals stable, afebrile - leukocytosis improving - post op pain minimal - no n/v, tolerating clears - urinating without difficulty Plan: advance diet as tolerated ambulate hallway if tolerates diet , discharge home this afternoon Rx for Percocet prn pain Rx for Cipro/Flagy for 5 days Discharge instructions reviewed f/u surgical office in 1-[address] Cartwright has seen and examined pt, agrees with above Subjective feeling better, preoperative pain resolved pain at incision sites, mild. Has not had anything for pain post op no n/v, tolerated clears no chest pain, shortness of breath urinating without difficulty Physical Exam Vital Signs (Past 24 Hours): Last Vital Signs Temp 36.9 C 10/17/18 07:07 Pulse 74 10/17/18 07:07 Resp 18 10/17/18 07:07 BP 115/72 10/17/18 07:07 Pulse Ox 92 10/17/18 07:07 Constitutional: WD/WN, vitals as above no acute distress and not ill appearing Respiratory: normal respiratory effort; no respiratory distress Gastrointestinal (Abdomen): Inspection/Auscultation: abdomen normal to inspection and + abdomen distended (very mild) Percussion/Palpation: + abdomen tender (at incision sites, appropriate post op) and abdomen soft; no guarding and abdomen not rigid Skin: no rashes, warm and dry + incision (covered with dry dressings, mild spotting present) Psychiatric: A+Ox3, euthymic affect Results & Data Laboratory Results 10/17/18 10/17/18 10/16/18 Range/Units 04:27 04:27 21:40 WBC 15.37 H (4.8-10.8) K/uL RBC 4.95 (4.7-6.1) M/uL Hgb 15.5 (14.0-18.0) g/dL POC Hgb (14.0-18.0) g/dl Hct 43.4 (42-52) % POC Hct (42-52) % MCV 87.7 (80-100) fL MCH 31.3 (25-34) pg MCHC 35.7 (32-36) g/dL RDW Std Deviation 38.6 (36.4-46.3) fL RDW Coeff of Chiquita 12.1 (11.5-14.5) % Plt Count 165 (130-400) K/uL MPV 10.2 (7.4-10.4) fL Immature Gran % (Auto) 0.2 % Neut % (Auto) 92.1 % Lymph % (Auto) 5.0 % [place] % (Auto) 2.5 % Eos % (Auto) 0.1 % Baso % (Auto) 0.1 % Immature Gran # (Auto) 0.03 H (0.00-0.02) K/uL Neut # (Auto) 14.16 H (1.4-6.5) K/uL Lymph # (Auto) 0.77 L (1.2-3.4) K/uL [place] # (Auto) 0.39 (0.11-0.59) K/uL Eos # (Auto) 0.01 (0-0.5) K/uL Baso # (Auto) 0.01 (0-0.2) K/uL POC Sodium (135-144) mEq/L Sodium (136-145) mmol/L POC Potassium (3.3-5.0) mEq/L Potassium (3.5-5.1) mmol/L POC Chloride (101-112) mEq/L Chloride (98-107) mmol/L Carbon Dioxide (21-32) mmol/L POC Total CO2 (24-31) mEq/l Anion Gap (3-11) POC Anion Gap (16-25) mmol/L POC BUN (7-18) mg/dl BUN (7-18) mg/dl Creatinine (0.6-1.4) mg/dl POC Creatinine (0.6-1.3) mg/dl Est Cr Clr Drug Dosing ml/min Est GFR ( Amer) Est GFR (Non-Af Amer) BUN/Creatinine Ratio (10-20) Glucose (70-99) mg/dl POC Glucose (other) (70-99) mg/dl Calcium (8.5-10.1) mg/dl POC Ioniz Calcium Kendra (1.12-1.32) mmol/l Total Bilirubin (0.2-1) mg/dl AST (15-37) U/L ALT (12-78) U/L Alkaline Phosphatase (45-117) U/L Total Protein (6.4-8.2) gm/dl Albumin (3.4-5.0) gm/dl Globulin (2.5-4.0) gm/dl Albumin/Globulin Ratio (0.9-2) Lipase (73-393) U/L Urine Color Yellow Urine Appearance Clear (Clear) Urine pH 6.5 (4.5-7.5) POC Urine pH (4.5-7.5) Ur Specific [place] > 1.045 H (1.000-1.030) Urine Protein Negative (Negative) POC Urine Protein (Negative) Urine Glucose (UA) Negative (Negative) POC Ur Glucose (UA) (Normal) Urine Ketones Negative (Negative) POC Urine Ketones (Negative) Urine Blood Negative (Negative) POC Urine Blood (Negative) Urine Nitrite Negative (Negative) POC Urine Nitrite (Negative) Urine Bilirubin Negative (Negative) POC Urine Bilirubin (Negative) Urine Urobilinogen Negative (Negative) POC Urine Urobilinogen (Normal) Ur Leukocyte Esterase Negative (Negative) POC U Leukocyte Esteras (Negative) Hepatitis C Ab Screen Neg (Neg) 10/16/18 10/16/18 10/16/18 Range/Units 21:40 20:42 20:36 WBC (4.8-10.8) K/uL RBC (4.7-6.1) M/uL Hgb (14.0-18.0) g/dL POC Hgb 16.0 (14.0-18.0) g/dl Hct (42-52) % POC Hct 47 (42-52) % MCV (80-100) fL MCH (25-34) pg MCHC (32-36) g/dL RDW Std Deviation (36.4-46.3) fL RDW Coeff of Chiquita (11.5-14.5) % Plt Count (130-400) K/uL MPV (7.4-10.4) fL Immature Gran % (Auto) % Neut % (Auto) % Lymph % (Auto) % [place] % (Auto) % Eos % (Auto) % Baso % (Auto) % Immature Gran # (Auto) (0.00-0.02) K/uL Neut # (Auto) (1.4-6.5) K/uL Lymph # (Auto) (1.2-3.4) K/uL [place] # (Auto) (0.11-0.59) K/uL Eos # (Auto) (0-0.5) K/uL Baso # (Auto) (0-0.2) K/uL POC Sodium 138 (135-144) mEq/L Sodium 138 (136-145) mmol/L POC Potassium 3.9 (3.3-5.0) mEq/L Potassium 3.8 (3.5-5.1) mmol/L POC Chloride 100 L (101-112) mEq/L Chloride 104 (98-107) mmol/L Carbon Dioxide 26 (21-32) mmol/L POC Total CO2 25 (24-31) mEq/l Anion Gap 8.0 (3-11) POC Anion Gap 18.0 (16-25) mmol/L POC BUN 14 (7-18) mg/dl BUN 13 (7-18) mg/dl Creatinine 1.08 (0.6-1.4) mg/dl POC Creatinine 1.0 (0.6-1.3) mg/dl Est Cr Clr Drug Dosing 93.4 ml/min Est GFR ( Amer) 90.3 Est GFR (Non-Af Amer) 77.9 BUN/Creatinine Ratio 12.1 (10-20) Glucose 104 H (70-99) mg/dl POC Glucose (other) 110 H (70-99) mg/dl Calcium 8.9 (8.5-10.1) mg/dl POC Ioniz Calcium Kendra 1.10 L (1.12-1.32) mmol/l Total Bilirubin 1.6 H (0.2-1) mg/dl AST 34 (15-37) U/L ALT 58 (12-78) U/L Alkaline Phosphatase 105 (45-117) U/L Total Protein 8.0 (6.4-8.2) gm/dl Albumin 4.3 (3.4-5.0) gm/dl Globulin 3.7 (2.5-4.0) gm/dl Albumin/Globulin Ratio 1.2 (0.9-2) Lipase 92 (73-393) U/L Urine Color Urine Appearance (Clear) Urine pH (4.5-7.5) POC Urine pH 6 (4.5-7.5) Ur Specific [place] (1.000-1.030) Urine Protein (Negative) POC Urine Protein Negative (Negative) Urine Glucose (UA) (Negative) POC Ur Glucose (UA) Normal (Normal) Urine Ketones (Negative) POC Urine Ketones Negative (Negative) Urine Blood (Negative) POC Urine Blood Negative (Negative) Urine Nitrite (Negative) POC Urine Nitrite Negative (Negative) Urine Bilirubin (Negative) POC Urine Bilirubin Negative (Negative) Urine Urobilinogen (Negative) POC Urine Urobilinogen Normal (Normal) Ur Leukocyte Esterase (Negative) POC U Leukocyte Esteras Negative (Negative) Hepatitis C Ab Screen (Neg) 10/16/18 Range/Units 20:36 WBC 17.62 H (4.8-10.8) K/uL RBC 5.57 (4.7-6.1) M/uL Hgb 17.6 (14.0-18.0) g/dL POC Hgb (14.0-18.0) g/dl Hct 49.3 (42-52) % POC Hct (42-52) % MCV 88.5 (80-100) fL MCH 31.6 (25-34) pg MCHC 35.7 (32-36) g/dL RDW Std Deviation 38.2 (36.4-46.3) fL RDW Coeff of Chiquita 12.0 (11.5-14.5) % Plt Count 202 (130-400) K/uL MPV 10.4 (7.4-10.4) fL Immature Gran % (Auto) 0.3 % Neut % (Auto) 81.7 % Lymph % (Auto) 10.5 % [place] % (Auto) 6.3 % Eos % (Auto) 1.0 % Baso % (Auto) 0.2 % Immature Gran # (Auto) 0.05 H (0.00-0.02) K/uL Neut # (Auto) 14.40 H (1.4-6.5) K/uL Lymph # (Auto) 1.85 (1.2-3.4) K/uL [place] # (Auto) 1.11 H (0.11-0.59) K/uL Eos # (Auto) 0.17 (0-0.5) K/uL Baso # (Auto) 0.04 (0-0.2) K/uL POC Sodium (135-144) mEq/L Sodium (136-145) mmol/L POC Potassium (3.3-5.0) mEq/L Potassium (3.5-5.1) mmol/L POC Chloride (101-112) mEq/L Chloride (98-107) mmol/L Carbon Dioxide (21-32) mmol/L POC Total CO2 (24-31) mEq/l Anion Gap (3-11) POC Anion Gap (16-25) mmol/L POC BUN (7-18) mg/dl BUN (7-18) mg/dl Creatinine (0.6-1.4) mg/dl POC Creatinine (0.6-1.3) mg/dl Est Cr Clr Drug Dosing ml/min Est GFR ( Amer) Est GFR (Non-Af Amer) BUN/Creatinine Ratio (10-20) Glucose (70-99) mg/dl POC Glucose (other) (70-99) mg/dl Calcium (8.5-10.1) mg/dl POC Ioniz Calcium Kendra (1.12-1.32) mmol/l Total Bilirubin (0.2-1) mg/dl AST (15-37) U/L ALT (12-78) U/L Alkaline Phosphatase (45-117) U/L Total Protein (6.4-8.2) gm/dl Albumin (3.4-5.0) gm/dl Globulin (2.5-4.0) gm/dl Albumin/Globulin Ratio (0.9-2) Lipase (73-393) U/L Urine Color Urine Appearance (Clear) Urine pH (4.5-7.5) POC Urine pH (4.5-7.5) Ur Specific [place] (1.000-1.030) Urine Protein (Negative) POC Urine Protein (Negative) Urine Glucose (UA) (Negative) POC Ur Glucose (UA) (Normal) Urine Ketones (Negative) POC Urine Ketones (Negative) Urine Blood (Negative) POC Urine Blood (Negative) Urine Nitrite (Negative) POC Urine Nitrite (Negative) Urine Bilirubin (Negative) POC Urine Bilirubin (Negative) Urine Urobilinogen (Negative) POC Urine Urobilinogen (Normal) Ur Leukocyte Esterase (Negative) POC U Leukocyte Esteras (Negative) Hepatitis C Ab Screen (Neg) (1) Acute appendicitis Acute appendicitis type: unspecified acute appendicitis type Qualified Code(s): K35.80 - Unspecified acute appendicitis
--- NOTE | 2018-10-18 13:54 | Discharge Summary ---
Date of Service October 18, 2018 Admission HPI Per Admitting Provider pt is a 53 year-old male who presents to ER with one day history of RLQ pain with nausea and no vomiting, the pain is located at RLQ, pt denies fever, no diarrhea, no back pain, no dysuria. pt had CT scan at ER dx acute appendicitis. Principal Diagnosis Acute appendicitis Discharge Exam Constitutional WD/WN, vitals as above no acute distress and not ill appearing Respiratory normal respiratory effort; no respiratory distress Gastrointestinal (Abdomen) Inspection/Auscultation: abdomen normal to inspection and + abdomen distended (very mild) Percussion/Palpation: + abdomen tender (at incision sites, appropriate post op) and abdomen soft; no guarding and abdomen not rigid Skin no rashes, warm and dry + incision (covered with dry dressings, mild spotting present) Psychiatric A+Ox3, euthymic affect Discharge Data Allergies Allergy/AdvReac Type Severity Reaction Status Date / Time No Known Allergies Allergy Unverified 10/16/18 21:59 Consultations 10/16/18 21:17 Consult General Surgery Stat Procedures Performed Operation Date: 10/16/18 21:45 Actual Procedures p Laparoscopic Appendectomy - Diaz Cartwright MD Ordered Studies 10/16/18 20:24 CT abd pelvis IV con only Stat Hospital Course (1) Acute appendicitis: Patient was taken to operating room for laparoscopic appendectomy possbile open by Dr. Cartwright. Patient found to have severe appendicitis with some gangrenous component however no terri perforation or abscess. Selena tolerated procedure well without any difficulties and was trasnferred to medical/surgical floor for post operative care. He was started on IV fluids, PO Percocet with breakthrough Dilaudid prn pain, IV Kaden prn nasuea, clear liquid diet, SCDs for DVT prophylaxis, incentive spirometer, advised to ambulate. Patient evaluated on POD # 1. Vitals stable, afebrile, preoperative pain resolved, with mild postoperative pain at incision sites. Tolerated clear liquids without nausea or vomiting. Urinating without difficulty. Had not had anything for pain post op. Leukocytosis improved. Patient's diet was advanced to reqular diet and advised to ambulate in hallway. Patient was evaluated later in the day in which he was stable and ready to go home. Sent home with 5 days of oral cipro/flagyl. f/u surgical office in 1-2 weeks. Total Time Total Time Spent Total Time Spent (In Minutes): 30 Total Time Includes: Examination of the Patient, Discharge Planning and Medication Reconciliation
== END 2018-10-17 15:54 | disposition home or self-care (01) ==
LOC: ED 19:57 → OR 21:47 → 3N 21:47